=== PATIENT | female | born 1960 | race Hispanic/Latino ===

== ENCOUNTER 2022-12-25 17:36 | Emergency (ER) | payer BC, OTHER ==
--- OUTSIDE RECORDS SUMMARY | 2022-12-25 17:43 | XMS REPORT | Continuity of Care Document ---
:1960 Author Organization [facility] t Address [address] [place] [address] Care Team Providers Name Role Phone Jamee Jacobs Attending Clinician Unavailable Payers Payer Name Policy Type Policy Number Effective Date Expiration Date S kaveh [employer] 6 [id number] 2021 Common Spiri t Blue Shield 00:00:00 - 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 [id number] Acquired Problem Active Comm on hypothyroi Spirit dism [facility] Depression Depression Problem Active C ommon [facility] [id number] Chronic Problem Active Common fatigue [facility] Allergies, Adverse Reactions, Alerts Allergy Allergy Status Severity Reaction(s) Onset Inactive Treating Comm ents Source Name Type Date Date Clinician ciproflo ciproflo Active rash Common xacin xacin [facility] sulfamet sulfamet Active rash Common hoxazole hoxazole Spirit / / - CHI trimetho trimetho [facility] Social History Social Habit Start Date Stop Date Quantity Comments Source History of Tobacco Use Co mmon [facility] Sex Assigned At Com mon [facility] Smoking Status Start Date Stop Date Source Never Smoker Common [facility] Medications Ordered Filled Start Stop Current Ordering Indication Dosage Frequency Signature Comments Components Source Medication Medication Date Date Medication? Clinician (SIG) Name Name Nitrofurant Nitrofurant 2020-06- No BID Nitrofuran oin oin 08-07 toin Macrocrysta Macrocrysta 00:00: 00:00 Macrocryst l 100 MG l 100 MG 00 :00 al 100 MG Diclofenac Diclofenac 2020-06- No 1{table BID Sodium 50 Sodium 50 08-02 t_as_ne MG MG 00:00: 00:00 eded} 00 :00 Diclofenac Diclofenac 2020-06- No 1{table BID Diclofenac Sodium 50 Sodium 50 08-02 t_as_ne Sodium 50 MG MG 00:00: 00:00 eded} MG 00 :00 methylPREDN methylPREDN 2020-06- No ISolone 4 ISolone 4 08-02 MG MG 00:00: 00:00 00 :00 methylPREDN methylPREDN 2020-06- No methylPRED ISolone 4 ISolone 4 08-02 NISolone 4 MG MG 00:00: 00:00 MG 00 :00 Nitrofurant Nitrofurant 2020-06- No BID Nitrofuran oin oin 07-19 toin Macrocrysta Macrocrysta 00:00: 00:00 Macrocryst l 100 MG l 100 MG 00 :00 al 100 MG Fluconazole Fluconazole 2020-06- No 1{table Fluconazol 150 MG 150 MG 07-19 t} e 150 MG 00:00: 00:00 00 :00 Nitrofurant Nitrofurant 2020-06- No BID Nitrofuran oin oin 07-13 toin Macrocrysta Macrocrysta 00:00: 00:00 Macrocryst l 100 MG l 100 MG 00 :00 al 100 MG Nitrofurant Nitrofurant 2020-06- No BID Nitrofuran oin oin 2-02 12-05 toin Macrocrysta Macrocrysta 00:00: 00:00 Macrocryst l 100 MG l 100 MG 00 :00 al 100 MG Diflucan Diflucan 2020-06- No 1{table Diflucan 150 MG 150 MG -19 11-20 t} 150 MG 00:00: 00:00 00 :00 Levothyroxi Levothyroxi 2020-06 No QD Levothyrox ne Sodium ne Sodium 1-12 ine Sodium 25 MCG 25 MCG 00:00: 25 MCG 00 Atorvastati Atorvastati 2020-06 No 1{table QD Atorvastat n Calcium n Calcium 1-12 t} in Calcium 20 MG 20 MG 00:00: 20 MG 00 Levothyroxi Levothyroxi 2020-06 No QD Levothyrox ne Sodium ne Sodium 1-12 ine Sodium 25 MCG 25 MCG 00:00: 25 MCG 00 Atorvastati Atorvastati 2020-06 No 1{table QD Atorvastat n Calcium n Calcium 1-12 t} in Calcium 20 MG 20 MG 00:00: 20 MG 00 Atorvastati Atorvastati 2020-06 No 1{table QD Atorvastat n Calcium n Calcium 1-12 t} in Calcium 20 MG 20 MG 00:00: 20 MG 00 Levothyroxi Levothyroxi 2020-06 No QD Levothyrox ne Sodium ne Sodium 1-12 ine Sodium 25 MCG 25 MCG 00:00: 25 MCG 00 Levothyroxi Levothyroxi 2020-06 No QD ne Sodium ne Sodium 1-12 25 MCG 25 MCG 00:00: 00 Atorvastati Atorvastati 2020-06 No 1{table QD n Calcium n Calcium 1-12 t} 20 MG 20 MG 00:00: 00 Atorvastati Atorvastati 2020-06 No 1{table QD Atorvastat n Calcium n Calcium 1-12 t} in Calcium 20 MG 20 MG 00:00: 20 MG 00 Levothyroxi Levothyroxi 2020-06 No QD Levothyrox ne Sodium ne Sodium 1-12 ine Sodium 25 MCG 25 MCG 00:00: 25 MCG 00 Atorvastati Atorvastati 2020-06 No 1{table QD Atorvastat n Calcium n Calcium 1-12 t} in Calcium 20 MG 20 MG 00:00: 20 MG 00 Atorvastati Atorvastati 2020-06 No 1{table QD Atorvastat n Calcium n Calcium 1-12 t} in Calcium 20 MG 20 MG 00:00: 20 MG 00 Atorvastati Atorvastati 2020-06 No 1{table QD n Calcium n Calcium 1-12 t} 20 MG 20 MG 00:00: 00 Levothyroxi Levothyroxi 2020-06 No QD ne Sodium ne Sodium 1-12 25 MCG 25 MCG 00:00: 00 Atorvastati Atorvastati 2020-06 No 1{table QD Atorvastat n Calcium n Calcium 1-12 t} in Calcium 20 MG 20 MG 00:00: 20 MG 00 Levothyroxi Levothyroxi 2020-06 No QD Levothyrox ne Sodium ne Sodium 1-12 ine Sodium 25 MCG 25 MCG 00:00: 25 MCG 00 Atorvastati Atorvastati 2020-06 No 1{table QD n Calcium n Calcium 1-12 t} 20 MG 20 MG 00:00: 00 Levothyroxi Levothyroxi 2020-06 No QD ne Sodium ne Sodium 1-12 25 MCG 25 MCG 00:00: 00 Atorvastati Atorvastati 2020-06 No 1{table QD Atorvastat n Calcium n Calcium 1-12 t} in Calcium 20 MG 20 MG 00:00: 20 MG 00 Levothyroxi Levothyroxi 2020-06 No QD Levothyrox ne Sodium ne Sodium 1-12 ine Sodium 25 MCG 25 MCG 00:00: 25 MCG 00 Levothyroxi Levothyroxi 2020-06 No QD Levothyrox ne Sodium ne Sodium 1-12 ine Sodium 25 MCG 25 MCG 00:00: 25 MCG 00 Atorvastati Atorvastati 2020-06 No 1{table QD Atorvastat n Calcium n Calcium 1-12 t} in Calcium 20 MG 20 MG 00:00: 20 MG 00 Nitrofurant Nitrofurant 2020-06- No BID oin oin 06-22 Macrocrysta Macrocrysta 00:00: 00:00 l 100 MG l 100 MG 00 :00 Nitrofurant Nitrofurant 2020-06- No BID Nitrofuran oin oin 06-22 toin Macrocrysta Macrocrysta 00:00: 00:00 Macrocryst l 100 MG l 100 MG 00 :00 al 100 MG Nitrofurant Nitrofurant 2020-06- No BID oin oin 06-22 Macrocrysta Macrocrysta 00:00: 00:00 l 100 MG l 100 MG 00 :00 Nitrofurant Nitrofurant 2020-06- No BID Nitrofuran oin oin 06-22 toin Macrocrysta Macrocrysta 00:00: 00:00 Macrocryst l 100 MG l 100 MG 00 :00 al 100 MG Nitrofurant Nitrofurant 2020-06- No BID Nitrofuran oin oin 06-22 toin Macrocrysta Macrocrysta 00:00: 00:00 Macrocryst l 100 MG l 100 MG 00 :00 al 100 MG Deplin 15 Deplin 15 No 1{capsu QD Deplin 15 15-90.314 15-90.314 le} 15-90.314 MG MG MG Vitamin B Vitamin B No Vitamin B 12 100 MCG 12 100 MCG 12 100 MCG Vitamin D3 Vitamin D3 No 1{table QD Vitamin D3 50 MCG 50 MCG t} 50 MCG (1999) (1999) (1999 UT) Zinc 30 MG Zinc 30 MG No 1{table QD Zinc 30 MG t} Vitamin C Vitamin C No 1{table QD Vitamin C 500 MG 500 MG t} 500 MG Probiotic Probiotic No Probiotic 1-250 1-250 1-250 BILLION-MG BILLION-MG BILLION-MG Escitalopra Escitalopra No 1{table QD Escitalopr m Oxalate m Oxalate t} am Oxalate 20 MG 20 MG 20 MG Estradiol 1 Estradiol 1 No 1{table QD Estradiol MG MG t} 1 MG Multivitami Multivitami No 1{table QD Multivitam n - n - t} in - Deplin 15 Deplin 15 No 1{capsu QD Deplin 15 15-90.314 1590.314 le} 15-90.314 MG MG MG Vitamin B Vitamin B No Vitamin B 12 100 MCG 12 100 MCG 12 100 MCG Vitamin D3 Vitamin D3 No 1{table QD Vitamin D3 50 MCG 50 MCG t} 50 MCG (1999) (1999) (1999) Zinc 30 MG Zinc 30 MG No 1{table QD Zinc 30 MG t} Vitamin C Vitamin C No 1{table QD Vitamin C 500 MG 500 MG t} 500 MG Probiotic Probiotic No Probiotic 1-250 1-250 1-250 BILLION-MG BILLION-MG BILLION-MG Escitalopra Escitalopra No 1{table QD Escitalopr m Oxalate m Oxalate t} am Oxalate 20 MG 20 MG 20 MG Estradiol 1 Estradiol 1 No 1{table QD Estradiol MG MG t} 1 MG Multivitami Multivitami No 1{table QD Multivitam n - n - t} in - Vitamin D3 Vitamin D3 No 1{table QD Vitamin D3 50 MCG 50 MCG t} 50 MCG (1999 UT) (1999 UT) (1999) Escitalopra Escitalopra No 1{table QD Escitalopr m Oxalate m Oxalate t} am Oxalate 20 MG 20 MG 20 MG Probiotic Probiotic No Probiotic 1-250 1-250 1-250 BILLION-MG BILLION-MG BILLION-MG Zinc 30 MG Zinc 30 MG No 1{table QD Zinc 30 MG t} Multivitami Multivitami No 1{table QD Multivitam n - n - t} in - Vitamin B Vitamin B No Vitamin B 12 100 MCG 12 100 MCG 12 100 MCG Estradiol 1 Estradiol 1 No 1{table QD Estradiol MG MG t} 1 MG Deplin 15 Deplin 15 No 1{capsu QD Deplin 15 15-90.314 15-90.314 le} 15-90.314 MG MG MG Vitamin C Vitamin C No 1{table QD Vitamin C 500 MG 500 MG t} 500 MG Escitalopra Escitalopra No 1{table QD m Oxalate m Oxalate t} 20 MG 20 MG Probiotic Probiotic No 1-250 1-250 BILLION-MG BILLION-MG Deplin 15 Deplin 15 No 1{capsu QD 15-90.314 15-90.314 le} MG MG Vitamin D3 Vitamin D3 No 1{table QD 50 MCG 50 MCG t} (1999 UT) (1999 UT) Multivitami Multivitami No 1{table QD n - n - t} Estradiol 1 Estradiol 1 No 1{table QD MG MG t} Vitamin C Vitamin C No 1{table QD 500 MG 500 MG t} Zinc 30 MG Zinc 30 MG No 1{table QD t} Probiotic Probiotic No Probiotic 1-250 1-250 1-250 BILLION-MG BILLION-MG BILLION-MG Zinc 30 MG Zinc 30 MG No 1{table QD Zinc 30 MG t} Deplin 15 Deplin 15 No 1{capsu QD Deplin 15 15.314 15.314 le} 15.314 MG MG MG Multivitami Multivitami No 1{table QD Multivitam n - n - t} in - Vitamin D3 Vitamin D3 No 1{table QD Vitamin D3 50 MCG 50 MCG t} 50 MCG (1999) (1999) (1999) Escitalopra Escitalopra No 1{table QD Escitalopr m Oxalate m Oxalate t} am Oxalate 20 MG 20 MG 20 MG Estradiol 1 Estradiol 1 No 1{table QD Estradiol MG MG t} 1 MG Vitamin C Vitamin C No 1{table QD Vitamin C 500 MG 500 MG t} 500 MG Multivitami Multivitami No 1{table QD Multivitam n - n - t} in - Deplin 15 Deplin 15 No 1{capsu QD Deplin 15 15.314 15.314 le} 15.314 MG MG MG Probiotic Probiotic No Probiotic 1-250 1-250 1-250 BILLION-MG BILLION-MG BILLION-MG Diclofenac Diclofenac No Diclofenac Sodium 50 Sodium 50 Sodium 50 MG MG MG Levothyroxi Levothyroxi No QD Levothyrox ne Sodium ne Sodium ine Sodium 25 MCG 25 MCG 25 MCG Zinc 30 MG Zinc 30 MG No 1{table QD Zinc 30 MG t} Vitamin D3 Vitamin D3 No 1{table QD Vitamin D3 50 MCG 50 MCG t} 50 MCG (1999) (1999) (1999 UT) Vitamin C Vitamin C No 1{table QD Vitamin C 500 MG 500 MG t} 500 MG Estradiol 1 Estradiol 1 No 1{table QD Estradiol MG MG t} 1 MG Escitalopra Escitalopra No 1{table QD Escitalopr m Oxalate m Oxalate t} am Oxalate 20 MG 20 MG 20 MG Vitamin D3 Vitamin D3 No 1{table QD Vitamin D3 50 MCG 50 MCG t} 50 MCG (1999) (1999) (1999 UT) Diclofenac Diclofenac No Diclofenac Sodium 50 Sodium 50 Sodium 50 MG MG MG Zinc 30 MG Zinc 30 MG No 1{table QD Zinc 30 MG t} Multivitami Multivitami No 1{table QD Multivitam n - n - t} in - Vitamin C Vitamin C No 1{table QD Vitamin C 500 MG 500 MG t} 500 MG Estradiol 1 Estradiol 1 No 1{table QD Estradiol MG MG t} 1 MG Levothyroxi Levothyroxi No QD Levothyrox ne Sodium ne Sodium ine Sodium 25 MCG 25 MCG 25 MCG Probiotic Probiotic No Probiotic 1-250 1-250 1-250 BILLION-MG BILLION-MG BILLION-MG Deplin 15 Deplin 15 No 1{capsu QD Deplin 15 15-90.314 15-.314 le} 15-90.314 MG MG MG Escitalopra Escitalopra No 1{table QD Escitalopr m Oxalate m Oxalate t} am Oxalate 20 MG 20 MG 20 MG Vitamin C Vitamin C No 1{table QD 500 MG 500 MG t} Escitalopra Escitalopra No 1{table QD m Oxalate m Oxalate t} 20 MG 20 MG Vitamin D3 Vitamin D3 No 1{table QD 50 MCG 50 MCG t} (1999) (1999 UT) Estradiol 1 Estradiol 1 No 1{table QD MG MG t} Multivitami Multivitami No 1{table QD n - n - t} Vitamin C Vitamin C No 1{table QD Vitamin C 500 MG 500 MG t} 500 MG Escitalopra Escitalopra No 1{table QD Escitalopr m Oxalate m Oxalate t} am Oxalate 20 MG 20 MG 20 MG Vitamin D3 Vitamin D3 No 1{table QD Vitamin D3 50 MCG 50 MCG t} 50 MCG (1999) (1999) (1999 UT) Estradiol 1 Estradiol 1 No 1{table QD Estradiol MG MG t} 1 MG Multivitami Multivitami No 1{table QD Multivitam n - n - t} in - Vitamin C Vitamin C No 1{table QD 500 MG 500 MG t} Escitalopra Escitalopra No 1{table QD m Oxalate m Oxalate t} 20 MG 20 MG Vitamin D3 Vitamin D3 No 1{table QD 50 MCG 50 MCG t} (1999) (1999 UT) Estradiol 1 Estradiol 1 No 1{table QD MG MG t} Multivitami Multivitami No 1{table QD n - n - t} Vitamin B Vitamin B No Vitamin B 12 100 MCG 12 100 MCG 12 100 MCG Vitamin D3 Vitamin D3 No 1{table QD Vitamin D3 50 MCG 50 MCG t} 50 MCG (1999) (1999 UT) (1999 UT) Multivitami Multivitami No 1{table QD Multivitam n - n - t} in - Zinc 30 MG Zinc 30 MG No 1{table QD Zinc 30 MG t} Probiotic Probiotic No Probiotic 1-250 1-250 1-250 BILLION-MG BILLION-MG BILLION-MG Estradiol 1 Estradiol 1 No 1{table QD Estradiol MG MG t} 1 MG Vitamin C Vitamin C No 1{table QD Vitamin C 500 MG 500 MG t} 500 MG Escitalopra Escitalopra No 1{table QD Escitalopr m Oxalate m Oxalate t} am Oxalate 20 MG 20 MG 20 MG Deplin 15 Deplin 15 No 1{capsu QD Deplin 15 15-90.314 15-90.314 le} 15-90.314 MG MG MG Deplin 15 Deplin 15 No 1{capsu QD Deplin 15 15-90.314 15-90.314 le} 15-90.314 MG MG MG Estradiol 1 Estradiol 1 No 1{table QD Estradiol MG MG t} 1 MG Escitalopra Escitalopra No 1{table QD Escitalopr m Oxalate m Oxalate t} am Oxalate 20 MG 20 MG 20 MG Probiotic Probiotic No Probiotic 1-250 1-250 1-250 BILLION-MG BILLION-MG BILLION-MG Vitamin B Vitamin B No Vitamin B 12 100 MCG 12 100 MCG 12 100 MCG Multivitami Multivitami No 1{table QD Multivitam n - n - t} in - Vitamin C Vitamin C No 1{table QD Vitamin C 500 MG 500 MG t} 500 MG Vitamin D3 Vitamin D3 No 1{table QD Vitamin D3 50 MCG 50 MCG t} 50 MCG (1999) (1999 UT) (1999) Zinc 30 MG Zinc 30 MG No 1{table QD Zinc 30 MG t} Vital Signs Vital Name Observation Time Observation Value Comments Source height 2021-07-12 15:00:00 63 [in_i] [facility] weight 2021-07-12 15:00:00 149 [lb_av] [facility] temperature 2021-07-12 15:00:00 98.1 [degF] [facility] bmi 2021-07-12 15:00:00 26.39 kg/m2 [facility] oximetry 2021-07-12 15:00:00 98 % [facility] respiratory rate 2021-07-12 15:00:00 16 /min Comm on [facility] blood pressure 2021-07-12 15:00:00 119 mm[Hg] [facility] - systolic [facility] blood pressure 2021-07-12 15:00:00 52 mm[Hg] [facility] - diastolic [facility] height 2021-06-06 14:40:00 63 [in_i] [facility] weight 2021-06-06 14:40:00 150.6 [lb_av] Common [facility] temperature 2021-06-06 14:40:00 98.5 [degF] Common S pirit [facility] bmi 2021-06-06 14:40:00 26.67 kg/m2 [facility] oximetry 2021-06-06 14:40:00 100 % Common [facility] respiratory rate 2021-06-06 14:40:00 16 /min Comm on [facility] blood pressure 2021-06-06 14:40:00 111 mm[Hg] [facility] - systolic [facility] blood pressure 2021-06-06 14:40:00 49 mm[Hg] [facility] - diastolic [facility] height 2021-06-01 15:40:00 63 [in_i] [facility] weight 2021-06-01 15:40:00 148 [lb_av] [facility] temperature 2021-06-01 15:40:00 97.2 [degF] Common S pirit [facility] bmi 2021-06-01 15:40:00 26.21 kg/m2 Common S pirit [facility] oximetry 2021-06-01 15:40:00 98 % Common S [facility] respiratory rate 2021-06-01 15:40:00 17 /min Comm on [facility] blood pressure 2021-06-01 15:40:00 120 mm[Hg] Common [facility] - systolic [facility] blood pressure 2021-06-01 15:40:00 78 mm[Hg] [facility] - diastolic [facility] height 2021-05-12 10:00:00 63 [in_i] Common [facility] weight 2021-05-12 10:00:00 148 [lb_av] Common [facility] temperature 2021-05-12 10:00:00 97.3 [degF] Common [facility] bmi 2021-05-12 10:00:00 26.21 kg/m2 Common [facility] oximetry 2021-05-12 10:00:00 99 % [facility] respiratory rate 2021-05-12 10:00:00 16 /min Comm on [facility] blood pressure 2021-05-12 10:00:00 124 mm[Hg] Common [facility] - systolic [facility] blood pressure 2021-05-12 10:00:00 57 mm[Hg] Common [facility] - diastolic [facility] height 2021-04-13 15:20:00 63 [in_i] Common [facility] weight 2021-04-13 15:20:00 148 [lb_av] [facility] temperature 2021-04-13 15:20:00 97.0 [degF] [facility] bmi 2021-04-13 15:20:00 26.21 kg/m2 [facility] oximetry 2021-04-13 15:20:00 98 % [facility] respiratory rate 2021-04-13 15:20:00 16 /min Comm on [facility] blood pressure 2021-04-13 15:20:00 114 mm[Hg] Common [facility] - systolic [facility] blood pressure 2021-04-13 15:20:00 51 mm[Hg] Common [facility] diastolic [facility] Procedures This patient has no known procedures. Encounters Start End Encounter Admission Attending Care Care Encounter Source Date/Time Date/Time Type Type Clinicians Facility Department ID 2022-11-27 Outpatient ALONA Jacobs STLMLC [id number] Common 14:30:01 Jamee [id number] [facility] 2022-11-23 Outpatient [place], STLMLC STLMLC [id number] Common 14:52:01 Jamee [id number] [facility] 2021-07-06 Outpatient [place], STLMLC STLMLC [id number] Common 14:08:33 Jamee [id number] [facility] 2021-07-12 2021-07-12 OFFICE STLMLC STLMLC [id number] Co mmon 00:00:00 00:00:00 VISIT [facility] PT - CHI LEVEL 4 [facility] 2021-06-16 2021-06-16 OFFICE STLMLC STLMLC [id number] Co mmon 00:00:00 00:00:00 VISIT [facility] PT - CHI LEVEL 1 [facility] 2021-06-06 2021-06-06 OFFICE STLMLC STLMLC [id number] Co mmon 00:00:00 00:00:00 VISIT EST Spir it PT LEVEL 3 [facility] 2021-06-01 2021-06-01 OFFICE STLMLC STLMLC [id number] Co mmon 00:00:00 00:00:00 VISIT EST Spir it PT LEVEL 3 [facility] 2021-05-18 2021-05-18 (TEL) STLMLC STLMLC [id number] Co mmon 00:00:00 00:00:00 [facility] 2021-05-12 2021-05-12 (TEL) STLMLC STLMLC [id number] Co mmon 00:00:00 00:00:00 [facility] 2021-05-12 2021-05-12 OFFICE STLMLC STLMLC [id number] Co mmon 00:00:00 00:00:00 VISIT EST Spir it PT LEVEL 3 [facility] 2021-04-29 2021-04-29 (TEL) STLMLC STLMLC [id number] Co mmon 00:00:00 00:00:00 [facility] 2021-04-22 2021-04-22 (TEL) STLMLC STLMLC [id number] Co mmon 00:00:00 00:00:00 [facility] 2021-04-21 2021-04-21 [facility]TEL) [facility] [id number] Co mmon 00:00:00 00:00:00 [facility] 2021-04-20 2021-04-20 (TEL) STLC STLC [id number] Co mmon 00:00:00 00:00:00 [facility] 2021-04-13 2021-04-13 [facility] [id number] Co mmon 00:00:00 00:00:00 VISIT NEW Spir it PT LEVEL 4 [facility] Results Test Description Test Time Test Comments Results Result Comments Source IRON BINDING CAPACITY AND IRON AND % SATURATION 2021-04-14 0 0:00:00 Test Item Value Reference Range Interpretation Comme nts IRON, SERUM (test code = 2498-4) 94 37-145 UNSATURATED IBC (test code = 2501-5) 276 112-347 CALC TOTAL IBC (test code = 27836-4) 370 250-450 CALC % IRON SAT (test code = 2502-3) 25 20-50 VITAMIN B 12 AND FOLIC [id number] 00:00:00 Test Item Value Reference Range Interpretation Comments VITAMIN B-12 (test code = 2132-9) 1158 200-950 FOLIC ACID (test code = 2284-8) >20.0 SEE BELOW COMPREHENSIVE METABOLIC [id number] 00:00:00 Test Item Value Reference Range Interpretation Comments GLUCOSE (test code = 91 70-99 1558-6) BUN (test code = 3094-0) 14 6-20 CREATININE (test code = 0.76 0.60-1.30 2160-0) eGFR AMER. (test 100 >60 code = 16345-6) eGFR NON- AMER. 86 >60 (test code = 42158-0) CALC BUN/CREAT (test 18 6-28 code = 3097-3) SODIUM (test code = 142 368-962 4965-2) POTASSIUM (test code = 4.8 3.5-5.4 2823-3) CHLORIDE (test code = 101 95-107 2075-0) CARBON DIOXIDE (test 30 19-31 code = 1963-8) CALCIUM (test code = 10.0 8.5-10.5 30188-0) PROTEIN, TOTAL (test 7.7 6.1-8.3 code = 2885-2) ALBUMIN (test code = 4.9 3.5-5.2 1751-7) CALC GLOBULIN (test code 2.8 1.9-3.7 = 34538-3) CALC A/G RATIO (test 1.8 1.0-2.6 code = 1759-0) BILIRUBIN, TOTAL (test 0.3 See_Comment [Aut omated message] The code = 1974-2) system which generated this result tra nsmitted reference range : <=1.2. The reference r sanjay was not used to int erpret this result as normal/abnormal . ALKALINE PHOSPHATASE 129 40-136 (test code = 6768-6) AST (test code = 1920-8) 30 9-40 ALT (test code = 1742-6) 26 5-40 CBC W/AUTO [id number] 00:00:00 Test Item Value Reference Range Interpretation Comments WBC (test code = 6.4 3.5-11.0 60306-3) RBC (test code = 4.49 3.80-5.40 53887-7) HEMOGLOBIN (test code = 14.0 11.5-15.5 718-7) HEMATOCRIT (test code = 41.0 34.0-45.0 51380-1) MCV (test code = 91.3 80.0-99.0 84876-5) MCH (test code = 31.2 25.0-33.0 74767-1) MCHC (test code = 34.1 31.0-36.0 17165-6) RDW (test code = 12.8 11.5-15.0 58363-5) NEUTROPHILS (test code = 60.6 40.0-75.0 68794-4) LYMPHOCYTES (test code = 24.0 20.0-45.0 19332-7) MONOCYTES (test code = 9.3 4.0-12.0 43726-4) EOSINOPHILS (test code = 5.2 0.0-7.0 26625-5) BASOPHILS (test code = 0.6 0.0-2.0 42662-4) NUCLEATED RBCS (test 0.0 See_Comment [Autom ated message] The code = 47476-8) system which generated this result tra nsmitted reference range : 0.0. The reference r sanjay was not used to int erpret this result as normal/abnormal . PLATELET COUNT (test 336 130-400 code = 19127-4) [id number] 00:00:00 Test Item Value Reference Range Interpretation Comments MAGNESIUM (test code = 28167-0) 2.3 1.6-2.6 FREE T4 (THYROXINE)2021-04-14 00:00:00 Test Item Value Reference Range Interpretation Comments FREE T4 (THYROXINE) (test code = 0.82 0.80-1.90 3024-7) VITAMIN D, 25 [id number] 00:00:00 Test Item Value Reference Range Interpretation Comments VITAMIN D, 25 OH (test code = 1989-3) 61 SEE BELOW LIPID [id number] 00:00:00 Test Item Value Reference Range Interpretation Comments CHOLESTEROL (test code = 2093-3) 259 <200 TRIGLYCERIDES (test code = 2571-8) 74 <150 HDL CHOLESTEROL (test code = 2085-9) 100 >39 CALC LDL CHOL (test code = 62224-8) 142 <100 RISK RATIO LDL/HDL (test code = 1.42 <3.22 13533-7)
[2022-12-25 18:55] LABS: Protime INR 0.98
[2022-12-25 18:56] LABS: Urine Bacteria None Seen /HPF (<20); Urine RBC <5 /HPF (None Seen)
[2022-12-25 18:57] LABS: Absolute Lymphocytes (CBC) 1.7 K/uL (0.7-4.9); Hematocrit 39.1 % (36.0-45.0); Lymphocytes % 27.2 % (15.3-44.8); MCV 92.1 fL (80-100); MPV 8.2 fL (7.6-11.3); RBC Red Blood Cell Count 4.24 M/uL (3.86-4.86)
[2022-12-25 19:07] LABS: ALT/SGPT 40 U/L (13-56); AST/SGOT 27 U/L (15-37); Albumin 3.4 g/dL (3.4-5.0); Alkaline Phosphatase 113 U/L (45-117); BUN Blood Urea Nitrogen 18 mg/dL (7-18); Bicarbonate 30 mEq/L (21-32); Bilirubin Total 0.2 mg/dL (0.2-1.0); Glomerular Filtration Rate 100 ml/min (=/>90); Glucose Level 104 mg/dL (74-106); Magnesium 2.4 mg/dL (1.6-2.4); Potassium 3.9 mEq/L (3.5-5.1); Protein, Total 7.6 g/dL (6.4-8.2); Sodium Level 135 mEq/L (136-145); Troponin High Sensitivity 3.1 pg/mL (<58.9)
--- NOTE | 2022-12-25 19:21 | RAD REPORT ---
EXAM DESCRIPTION: [facility] Single View12/25/2022 6:42 pm CLINICAL HISTORY: Dizziness and weakness COMPARISON: none FINDINGS: The lungs appear clear of acute infiltrate. The heart is normal size IMPRESSION: No acute abnormalities displayed
--- NOTE | 2022-12-25 19:23 | RAD REPORT ---
EXAM DESCRIPTION: CT - Head Brain Wo Cont - 12/25/2022 6:50 pm CLINICAL HISTORY: Dizziness COMPARISON: none TECHNIQUE: Computed axial tomography of the head was obtained. IV contrast was not requested. All CT scans are performed using dose optimization technique as appropriate and may include automated exposure control or mA/KV adjustment according to patient size. FINDINGS: An intracranial bleed is not seen The ventricles are normal in caliber No significant hypodense areas within the brain visualized No extra-axial fluid collection is noted. Fluid within the sinuses/ mastoids is not seen IMPRESSION: No acute intracranial abnormality is seen If patient's symptoms persist MRI of the brain would be recommended
[2022-12-25 19:27] LABS: Bilirubin Direct < 0.1 mg/dL (0-0.2); Bilirubin Indirect, Calculated ND mg/dL (0.2-0.8)
--- NOTE | 2022-12-25 20:13 | ER ---
Nurse's Notes [facility] Name: Carri Villasenor Age: 62 yrs Sex: Female : 1960 Arrival Date: 12/25/2022 Time: 17:36 Bed 16 Private MD: Jamee Jacobs Diagnosis: Weakness;Other malaise and fatigue Presentation: 12/25 17:46 Chief complaint: Patient states: "! wk ago, I started a low carb diet of only 75 carbs. mb9 Today I started feeling weak, dizzy, and having lower back pain on my right side. I feel like I have a UTI due to frequency.". Coronavirus screen: Vaccine status:. Ebola Screen: No symptoms or risks identified at this time. Initial Sepsis Screen: Does the patient meet any 2 criteria? No. Patient's initial sepsis screen is negative. Does the patient have a suspected source of infection? No. Patient's initial sepsis screen is negative. Risk Assessment: Do you want to hurt yourself or someone else? Patient reports no desire to harm self or others. Onset of symptoms was December 25, 2022. 17:46 Method Of Arrival: Ambulatory mb9 17:46 Acuity: ADEEL 3 mb9 Triage Assessment: 17:48 General: Appears in no apparent distress. Behavior is calm, cooperative. Pain: mb9 Complains of pain in back. Neuro: Solomon Agitation-Sedation Scale (RASS): 0 - Alert and Calm Level of Consciousness is awake, alert, obeys commands, Oriented to person, place, time, situation, Appropriate for age. Neuro: Reports dizziness, weakness. Cardiovascular: Patient's skin is warm and dry. Respiratory: Airway is patent Respiratory effort is even, unlabored, Respiratory pattern is regular, symmetrical. GI: No signs and/or symptoms were reported involving the gastrointestinal system. : Reports urinary frequency. Derm: Skin is pink, warm \\T\\ dry. Musculoskeletal: Range of motion: intact in all extremities. Historical: - Allergies: 17:47 No Known Allergies; mb9 - Home Meds: 17:47 levothyroxine oral [Active]; mb9 - PMHx: 17:47 Hypothyroidism; mb9 - PSHx: 17:47 section; Total abdominal hysterectomy; mb9 - Immunization history:: Adult Immunizations up to date. - Social history:: Smoking status: Patient denies any tobacco usage or history of. Screenin:20 [facility] ED Fall Risk Assessment (Adult). Abuse screen: Denies threats or abuse. Denies ha1 injuries from another. Nutritional screening: No deficits noted. Tuberculosis screening: No symptoms or risk factors identified. Assessment: 19:20 General: Appears comfortable, Behavior is calm, cooperative. Pain: Denies pain. Neuro: ha1 Level of Consciousness is awake, alert, obeys commands, Oriented to person, place, time, situation. Cardiovascular: Patient's skin is warm and dry. Respiratory: Airway is patent Respiratory effort is even, unlabored, Respiratory pattern is regular, symmetrical. Vital Signs: 17:46 BP 142 / 76; Pulse 89; Resp 18; Temp 98; Pulse Ox 100% on R/A; Weight 66.68 kg; Height mb9 5 ft. 3 in. ; 19:20 BP 135 / 85; Pulse 80; Resp 19 S; Pulse Ox 100% on R/A; ha1 20:00 BP 131 / 90; Pulse 85; Resp 18 S; Pulse Ox 100% on R/A; ha1 17:46 Body Mass Index 26.04 (66.68 kg, 160.02 cm) mb9 ED Course: 17:37 Patient arrived in ED. am2 17:37 Jamee Jacobs FNP-C is Private Physician. am2 17:39 [facility]. cp 17:39 Yogi Diggs MD is Attending Physician. cp 17:46 Arm band placed on. mb9 17:47 Triage completed. mb9 18:02 Gaby Orta, LIDIA is Primary Nurse. db 18:44 XRAY Chest (1 view) In Process Unspecified. EDMS 18:51 CT Head Brain wo Cont In Process Unspecified. EDMS 19:20 Patient has correct armband on for positive identification. Placed in gown. Bed in low ha1 position. Call light in reach. Side rails up X 1. Adult w/ patient. Administered Medications: No medications were administered Outcome: 20:12 Discharge ordered by . cp 20:34 Patient left the ED. ha1 Signatures: Dispatcher [employer] EDMS Yogi Polo PA PA cp Moreno, Amanda am2 Leidy Ochoa RN RN Gaby Ward, RN RN db Neeut, Sandra, RN RN mb9
--- NOTE | 2022-12-25 20:13 | EDPHYS ---
Physician Documentation [facility] Name: Carri Villasenor Age: 62 yrs Sex: Female : 1960 Arrival Date: 12/25/2022 Time: 17:36 Bed 16 Private MD: Jamee Jacobs ED Physician Yogi Diggs HPI: 12/25 18:08 This 62 yrs old Female presents to ER via Ambulatory with complaints of cp General Weakness, Urinary Problem. 18:08 The patient's problem is reported as weakness, that is generalized. cp 18:08 Onset: The symptoms/episode began/occurred this morning. Duration: The episode is cp continuous. Associated signs and symptoms: Pertinent positives: urinary frequency. Patient's baseline: Neuro: alert and fully oriented, Motor: no deficits, Ambulation: walks without assistance, Speech: normal. Patient is a 62-year-old female who presents to the emergency room with complaints of just general weakness and urinary frequency. Patient reports switching to a keto type diet for the past week and has noticed increased fatigue and that she has been sleeping more than usual. The patient describes it as just kind of being generally tired. The patient reports today that she just feels weak all over. Historical: - Allergies: 17:47 No Known Allergies; mb9 - Home Meds: 17:47 levothyroxine oral [Active]; mb9 - PMHx: 17:47 Hypothyroidism; mb9 - PSHx: 17:47 section; Total abdominal hysterectomy; mb9 - Immunization history:: Adult Immunizations up to date. - Social history:: Smoking status: Patient denies any tobacco usage or history of. ROS: 18:10 Constitutional: Negative for body aches, chills, fever, poor PO intake. cp 18:10 Eyes: Negative for injury, pain, redness, and discharge. cp 18:10 ENT: Negative for drainage from ear(s), ear pain, sore throat, difficulty swallowing, difficulty handling secretions. 18:10 Cardiovascular: Negative for chest pain, palpitations. 18:10 Respiratory: Negative for cough, shortness of breath, wheezing. 18:10 Abdomen/GI: Negative for abdominal pain, vomiting, diarrhea, constipation. 18:10 Back: Positive for flank pain, on the right. 18:10 Skin: Negative for cellulitis, rash. 18:10 Neuro: Positive for dizziness, weakness, Negative for headache, syncope, near syncope. 18:10 All other systems are negative. Exam: 18:15 ECG was reviewed by the Attending Physician. cp 18:17 Constitutional: The patient appears in no acute distress, alert, awake, cp non-diaphoretic, non-toxic, well developed, well nourished. 18:17 Head/Face: Normocephalic, atraumatic. cp 18:17 Eyes: Periorbital structures: appear normal, Pupils: equal, round, and reactive to light and accomodation, Extraocular movements: intact throughout, Conjunctiva: normal, no exudate, no injection, Sclera: no appreciated abnormality, Lids and lashes: appear normal, bilaterally. 18:17 ENT: External ear(s): are unremarkable, Nose: is normal, Mouth: Lips: moist, Oral mucosa: pink and intact, moist, Posterior pharynx: is normal, airway is patent, no erythema, no exudate. 18:17 Neck: ROM/movement: is normal, is supple, without pain, no range of motions limitations. 18:17 Chest/axilla: Inspection: normal, Palpation: is normal, no crepitus, no tenderness. 18:17 Cardiovascular: Rate: normal, Rhythm: regular, Edema: is not appreciated, JVD: is not appreciated. 18:17 Respiratory: the patient does not display signs of respiratory distress, Respirations: normal, no use of accessory muscles, no retractions, labored breathing, is not present, Breath sounds: are clear throughout, no decreased breath sounds, no stridor, no wheezing. 18:17 Abdomen/GI: Inspection: abdomen appears normal, Palpation: abdomen is soft and non-tender, in all quadrants. 18:17 Back: pain, that is mild, of the right mid back, ROM is normal. 18:17 Neuro: Orientation: to person, place \T\ time. Mentation: is normal, Motor: moves all fours, strength is normal, Sensation: is normal. 19:30 Radiologist reports: no acute findings cp Vital Signs: 17:46 BP 142 / 76; Pulse 89; Resp 18; Temp 98; Pulse Ox 100% on R/A; Weight 66.68 kg; Height mb9 5 ft. 3 in. ; 19:20 BP 135 / 85; Pulse 80; Resp 19 S; Pulse Ox 100% on R/A; ha1 20:00 BP 131 / 90; Pulse 85; Resp 18 S; Pulse Ox 100% on R/A; ha1 17:46 Body Mass Index 26.04 (66.68 kg, 160.02 cm) mb9 MDM: 17:43 Patient medically screened. tiago 19:00 Differential diagnosis: CVA, TIA, metabolic disorder, drug effects, cardiac arrythmia, cp electrolyte abnormality. 20:11 Data reviewed: vital signs, nurses notes, lab test result(s), EKG, radiologic studies, cp CT scan, plain films. 20:11 Care significantly affected by the following chronic conditions: hypothyroidism. cp Counseling: I had a detailed discussion with the patient and/or guardian regarding: the historical points, exam findings, and any diagnostic results supporting the discharge/admit diagnosis, lab results, radiology results, the need for outpatient follow up, a family practitioner, to return to the emergency department if symptoms worsen or persist or if there are any questions or concerns that arise at home. Response to treatment: the patient's symptoms have mildly improved after treatment, and as a result, I will discharge patient. 12/25 18:05 Order name: Urine Microscopic Only; Complete Time: 19:27 12/25 19:27 Interpretation: Reviewed. 12/25 18:05 Order name: Basic Metabolic Panel; Complete Time: 20:06 12/25 20:06 Interpretation: Normal except: NA 135. 12/25 18:05 Order name: CBC with Diff; Complete Time: 19:27 12/25 19:27 Interpretation: Reviewed. 12/25 18:05 Order name: LFT's; Complete Time: 20:06 12/25 20:06 Interpretation: Normal except: GLOB 4.2; A/G 0.8. 12/25 18:05 Order name: Magnesium; Complete Time: 20:06 12/25 18:05 Order name: PT-INR; Complete Time: 19:27 12/25 18:05 Order name: Troponin HS; Complete Time: 20:06 12/25 20:06 Interpretation: Troponin HS 3.1; Reviewed. 12/25 18:05 Order name: XRAY Chest (1 view); Complete Time: 19:27 12/25 20:06 Interpretation: Report review. cp 12/25 18:05 Order name: CT Head Brain wo Cont; Complete Time: 19:27 cp 12/25 19:27 Interpretation: Report reviewed. cp 12/25 18:05 Order name: EKG; Complete Time: 18:05 cp 12/25 18:05 Order name: Cardiac monitoring; Complete Time: 18:37 cp 12/25 18:05 Order name: EKG - Nurse/Tech; Complete Time: 18:13 cp 12/25 18:05 Order name: IV Saline Lock; Complete Time: 18:38 cp 12/25 18:05 Order name: Labs collected and sent; Complete Time: 18:38 cp 12/25 18:05 Order name: O2 Per Protocol; Complete Time: 18:38 cp 12/25 18:05 Order name: O2 Sat Monitoring; Complete Time: 18:38 cp EC:15 Rate is 71 beats/min. Rhythm is regular. DC interval is normal. QRS interval is normal. cp QT interval is normal. T waves are Inverted in lead aVR. Interpreted by me. Reviewed by me. Administered Medications: No medications were administered Disposition Summary: 12/25/22 20:12 Discharge Ordered Location: Home cp Problem: new cp Symptoms: have improved cp Condition: Stable cp Diagnosis - Weakness cp - Other malaise and fatigue cp Followup: cp - With: Private Physician - When: 2 - 3 days - Reason: Recheck today's complaints Discharge Instructions: - Discharge Summary Sheet cp - Weakness cp - Fatigue cp Forms: - Medication Reconciliation Form cp - Thank You Letter cp - Antibiotic Education cp - Prescription Opioid Use cp - Patient Portal Instructions cp Signatures: Dispatcher [employer] EDYogi Castaneda MD MD cha Page, Corey, PA Janna Hearn cp, RN RN mb9
[2022-12-25 23:31] VITALS: TEMP 98; O2SAT 100
[2022-12-25 23:35] VITALS: BP 131/90
--- NOTE | 2022-12-26 20:40 | EKG ---
Test Date: 2022-12-25 Test Time: 18:09:29 [employer]viculture Professor: JUAN MEASUREMENT RESULTS: Intervals: Rate: 71 CO: 160 QRSD: 88 QT: 386 QTc: 419 [place]: P: 63 CO: 160 QRS: 24 T: 57 INTERPRETIVE STATEMENTS: Normal sinus rhythm Normal ECG No previous ECG available for comparison Electronically Signed On 12-26-22 20:37:44 CDT by Rory Lance
== END 2022-12-25 20:34 | disposition home or self-care (01) ==
LOC: ER 17:36
DX: R53.1 Weakness (principal); R53.81 Other malaise; R53.83 Other fatigue; E03.9 Hypothyroidism, unspecified; Z79.899 Other long term (current) drug therapy
CPT/HCPCS: 36415; 70450; 71045; 80048; 80076; 81015; 83735; 84484; 85025; 85610; 93005; 99283